=== PATIENT | female | born 1980 | race Caucasian/White ===

== ENCOUNTER 2022-05-29 20:12 | Emergency (ER) | payer BC ==
[2022-05-29] MEDS ORDERED: Albuterol/Ipratropium 3.0-0.5 MG/3 ML Neb Soln NEB ONE (20:39)
[2022-05-29] MEDS ORDERED: Iopamidol 755 Mg/ML 100 ML Bottle IVPUSH ONE (22:12)
[2022-05-29] MEDS ORDERED: Sodium Chloride 0.9% 100 ML IV SCH (22:15)
== END 2022-05-29 23:15 | disposition home or self-care (01) ==
LOC: JD.ED 20:12
DX: U07.1 COVID-19 (principal); J12.82 Pneumonia due to coronavirus disease 2019; Z91.048 Other nonmedicinal substance allergy status; Z88.1 Allergy status to other antibiotic agents; Z88.8 Allergy status to other drugs, medicaments and biological substances; Z79.01 Long term (current) use of anticoagulants; Z86.16 Personal history of COVID-19
CPT/HCPCS: 36415; 71045; 71045-26; 71275; 71275-26; 80053; 85025; 85379; 86140; 94640; 99285; J7620-GY; Q9967

== ENCOUNTER 2022-12-01 17:03 | Emergency (ER) | payer BC ==
[2022-12-01] MEDS ORDERED: Sodium Chloride 0.9% 10 ML Syringe FLUSH PRN ×2 (18:11→18:19)
[2022-12-01] MEDS ORDERED: Sodium Chloride 0.9% 1,000 ML IV ONE (18:11)
[2022-12-01] MEDS ORDERED: Ondansetron 4 MG/2 ML SDV IVPUSH ONE (18:11)
[2022-12-01 18:18] LABS: BASOPHILS ABSOLUTE AUTO 0.02 K/mm3 (0.01-0.08); BASOPHILS PERCENT AUTO 0.5 % (0.1-1.2); EOSINOPHILS PERCENT AUTO 2.3 (0.7-5.8); HEMOGLOBIN 13.2 gm/dl (11.2-15.7); IMMATURE GRAN ABSOLUTE AUTO 0.01 K/mm3 (0.00-0.10); IMMATURE GRAN PERCENT AUTO 0.2 % (<=1.0); LYMPHOCYTES ABSOLUTE AUTO 0.92 K/mm3 (1.18-3.74); LYMPHOCYTES PERCENT AUTO 20.9 % (19.3-51.7); MEAN CORPUSCULAR HEMOGLOBIN 31.6 pg (25.6-32.2); MEAN CORPUSCULAR HGB CONC 32.2 g/dl (32.2-35.5); MEAN CORPUSCULAR VOLUME 98.1 fl (79.4-94.8); MONOCYTES ABSOLUTE AUTO 0.61 K/mm3 (0.24-0.36); MONOCYTES PERCENT AUTO 13.8 % (4.7-12.5); NEUTROPHILS ABSOLUTE AUTO 2.75 K/mm3 (1.56-6.13); NEUTROPHILS PERCENT AUTO 62.3 % (34.0-71.1); PLATELET COUNT,PLT 248 K/mm3 (182-369); RED BLOOD CELL COUNT 4.18 M/mm3 (3.98-5.22); WHITE BLOOD CELL COUNT,WBC 4.41 K/mm3 (3.98-10.04)
[2022-12-01] MEDS ORDERED: Iopamidol 612 MG/ML 100 ML Bottle IVPUSH ONE (18:19)
[2022-12-01 18:28] LABS: A/G RATIO 0.8 (1-2); ALBUMIN 3.6 g/dl (3.4-5.0); ANION GAP 12.3 (5-15); BILIRUBIN TOTAL 0.2 mg/dL (0.2-1.0); C-REACTIVE PROTEIN 0.8 mg/dL (<1.0); CALCIUM 9.3 mg/dL (8.5-10.1); EST CRCL DRUG DOSING (CG) 72.72 mL/min; MAGNESIUM 1.8 mg/dL (1.8-2.4); POTASSIUM,K 4.3 mEq/L (3.5-5.1); PROTEIN TOTAL,TP 8.4 g/dl (6.4-8.2)
[2022-12-01 18:53] LABS: APPEARANCE,URINE SLT CLOUDY (Clear); BILIRUBIN,URINE 1+ (Negative); COLOR,URINE AMBER (Yellow); GLUCOSE,URINE TRACE (Negative); KETONES,URINE 1+ (Negative); LEUKOCYTE ESTERASE,URINE TRACE (Negative); NITRITE,URINE POSITIVE (Negative); OCCULT BLOOD,URINE 2+ (Negative); PH,URINE 5.5 (5.0-8.0); PROTEIN,URINE 3+ (Negative)
[2022-12-01 19:04] LABS: RBC,URINE 50-75 /hpf (0-5); WBC,URINE >100 /hpf (0-5)
[2022-12-01 19:05] LABS: BACTERIA,URINE MANY /hpf (FEW); EPITHELIAL CELLS,URINE 30-40 /hpf (0-5); MUCUS,URINE MODERATE /hpf (FEW)
[2022-12-01] MEDS ORDERED: Piperacillin/Tazobactam 4.5 GM in Sodium Chloride 0.9% 100 ML IV ONE (20:23)
[2022-12-01] MEDS ORDERED: cefTRIAXone 2 GM in Sodium Chloride 0.9% 100 ML IV ONE (20:29)
== END 2022-12-01 22:20 | disposition home or self-care (01) ==
LOC: JD.ED 17:03
DX: N30.01 Acute cystitis with hematuria (principal); Z86.16 Personal history of COVID-19; Z79.02 Long term (current) use of antithrombotics/antiplatelets; Z79.899 Other long term (current) drug therapy; Z88.1 Allergy status to other antibiotic agents; Z88.8 Allergy status to other drugs, medicaments and biological substances; Z91.048 Other nonmedicinal substance allergy status
CPT/HCPCS: 36415; 74177; 76830; 80053; 81001; 83690; 83735; 85025; 86140; 87086; 96365; 96375; 99284; J0696; J2405; J3490; J7030; Q9967

== ENCOUNTER 2023-08-05 17:59 | Emergency (ER) | payer BC | END 2023-08-05 20:06 | disposition home or self-care (01) | LOC: JD.ED 17:59 | DX: M25.512 Pain in left shoulder (principal); Z86.16 Personal history of COVID-19; Z79.01 Long term (current) use of anticoagulants; Z79.899 Other long term (current) drug therapy; Z91.048 Other nonmedicinal substance allergy status; Z88.1 Allergy status to other antibiotic agents; Z88.8 Allergy status to other drugs, medicaments and biological substances | CPT/HCPCS: 73030-26-LT; 73030-LT; 99283 ==

== ENCOUNTER 2023-09-24 19:31 | Emergency (ER) | payer BC ==
[2023-09-24 19:55] LABS: BASOPHILS PERCENT AUTO 0.9 % (0.0-1.0); EOSINOPHILS ABSOLUTE AUTO 0.1 K/mm3 (0.0-0.4); EOSINOPHILS PERCENT AUTO 1.4 % (0.0-6.0); HEMATOCRIT 38.3 % (37.0-47.0); HEMOGLOBIN 12.7 gm/dl (12.0-16.0); IMMATURE GRAN ABSOLUTE AUTO 0.01 K/mm3 (0.00-0.05); IMMATURE GRAN PERCENT AUTO 0.3 % (0.0-0.4); LYMPHOCYTES ABSOLUTE AUTO 0.7 K/mm3 (1.0-4.8); LYMPHOCYTES PERCENT AUTO 20.2 % (24.0-44.0); MEAN CORPUSCULAR HEMOGLOBIN 32.6 pg (28.0-32.0); MEAN CORPUSCULAR HGB CONC 33.2 g/dl (32.0-36.0); MEAN CORPUSCULAR VOLUME 98.5 fl (83.0-99.0); MEAN PLATELET VOLUME 9.4 fl (9.4-12.3); MONOCYTES ABSOLUTE AUTO 0.3 K/mm3 (0.0-0.8); MONOCYTES PERCENT AUTO 8.3 % (0.0-8.0); NEUTROPHILS ABSOLUTE AUTO 2.4 K/mm3 (1.8-7.7); NEUTROPHILS PERCENT AUTO 68.9 % (41.0-71.0); PLATELET COUNT,PLT 208 K/mm3 (150-400); RED BLOOD CELL COUNT 3.89 M/mm3 (4.10-5.30); WHITE BLOOD CELL COUNT,WBC 3.51 K/mm3 (3.9-11.3)
[2023-09-24] MEDS: Labetalol 100 MG/20 ML MDV IVPUSH ONE (20:14)
[2023-09-24 20:17] LABS: APPEARANCE,URINE CLEAR (Clear); BILIRUBIN,URINE NEGATIVE (Negative); COLOR,URINE YELLOW (Yellow); GLUCOSE,URINE NEGATIVE (Negative); KETONES,URINE NEGATIVE (Negative); LEUKOCYTE ESTERASE,URINE NEGATIVE (Negative); NITRITE,URINE NEGATIVE (Negative); OCCULT BLOOD,URINE NEGATIVE (Negative); PH,URINE 6.5 (5.0-8.0); PROTEIN,URINE NEGATIVE (Negative); UROBILINOGEN,URINE 0.2 (0.2-1.0)
[2023-09-24 20:19] LABS: A/G RATIO 0.9 (1-2); ALBUMIN 3.6 g/dl (3.4-5.0); ANION GAP 13.7 (5-15); BILIRUBIN TOTAL 0.2 mg/dL (0.2-1.0); CALCIUM 8.6 mg/dL (8.5-10.1); POTASSIUM,K 3.7 mEq/L (3.5-5.1); PROTEIN TOTAL,TP 7.8 g/dl (6.4-8.2)
[2023-09-24] MEDS: Sodium Chloride 0.9% 10 ML Syringe FLUSH PRN (20:25)
[2023-09-24] MEDS: Digoxin 500 MCG/2 ML Amp IVPUSH ONE (20:25)
== END 2023-09-24 21:55 | disposition home or self-care (01) ==
LOC: JD.ED 19:31
DX: I47.9 Paroxysmal tachycardia, unspecified (principal); Z86.16 Personal history of COVID-19; Z79.899 Other long term (current) drug therapy; Z91.048 Other nonmedicinal substance allergy status; Z88.8 Allergy status to other drugs, medicaments and biological substances; Z88.1 Allergy status to other antibiotic agents
CPT/HCPCS: 36415; 80053; 81003; 83735; 84484; 85025; 85379; 93005; 96374; 99285; J1160; J1921; J3490; 93010; 99284

== ENCOUNTER 2025-04-18 18:47 | Emergency (ER) | payer BC, OTHER ==
[2025-04-18] MEDS ORDERED: Sodium Chloride 0.9% 10 ML Syringe FLUSH PRN (19:21)
[2025-04-18 19:26] LABS: BASOPHILS ABSOLUTE AUTO 0.0 K/mm3 (0.0-0.2); BASOPHILS PERCENT AUTO 0.6 % (0.0-1.0); EOSINOPHILS ABSOLUTE AUTO 0.1 K/mm3 (0.0-0.4); EOSINOPHILS PERCENT AUTO 1.8 % (0.0-6.0); IMMATURE GRAN ABSOLUTE AUTO 0.01 K/mm3 (0.00-0.05); IMMATURE GRAN PERCENT AUTO 0.2 % (0.0-0.4); LYMPHOCYTES ABSOLUTE AUTO 1.1 K/mm3 (1.0-4.8); LYMPHOCYTES PERCENT AUTO 20.8 % (24.0-44.0); MEAN PLATELET VOLUME 9.6 fl (9.4-12.3); MONOCYTES ABSOLUTE AUTO 0.6 K/mm3 (0.0-0.8); MONOCYTES PERCENT AUTO 11.9 % (0.0-8.0); NEUTROPHILS ABSOLUTE AUTO 3.3 K/mm3 (1.8-7.7); NEUTROPHILS PERCENT AUTO 64.7 % (41.0-71.0); NRBC ABSOLUTE 0.00 (0.00-0.02); NRBC PERCENT 0.0 % (0.0-0.2); PLATELET COUNT,PLT 206 K/mm3 (150-400); RED BLOOD CELL COUNT 3.87 M/mm3 (4.10-5.30); WHITE BLOOD CELL COUNT,WBC 5.14 K/mm3 (3.9-11.3)
[2025-04-18] MEDS: Iopamidol 755 Mg/ML 100 ML Bottle IVPUSH ONE (19:43)
[2025-04-18 20:14] LABS: A/G RATIO 0.9 (1-2); ALANINE AMINOTRANSFERASE,ALT 24.0 U/L (14-59); ASPARTATE AMNIOTRANSFERASE,AST 13.0 U/L (15-37); BILIRUBIN TOTAL 0.2 mg/dL (0.2-1.0); BLOOD UREA NITROGEN,BUN 13.0 mg/dL (7-18); CARBON DIOXIDE,CO2 26.0 mEq/L (21-32); CHLORIDE,CL 107.0 mEq/L (98-107); CREATININE 1.0 mg/dL (0.55-1.02); EST CRCL DRUG DOSING (CG) 71.27 mL/min; ESTIMATED GFR 72.0 mL/min (>60); GLUCOSE RANDOM 121.0 mg/dL (70-99); PROTEIN TOTAL,TP 7.3 g/dl (6.4-8.2); SODIUM,NA 142.0 mEq/L (136-145); TROPONIN I HIGH SENSITIVITY 5.0 pg/mL (<=51); TSH 4.266 uIU/mL (0.358-3.74)
[2025-04-18 20:15] LABS: POTASSIUM,K 4.3 mEq/L (3.5-5.1)
[2025-04-18 21:48] LABS: T4 FREE 1.25 ng/dL (0.76-1.46)
== END 2025-04-18 21:34 | disposition home or self-care (01) ==
LOC: JD.ED 18:47
DX: R00.2 Palpitations (principal); R06.02 Shortness of breath; Z79.01 Long term (current) use of anticoagulants; Z79.890 Hormone replacement therapy; Z86.16 Personal history of COVID-19; Z91.048 Other nonmedicinal substance allergy status; Z88.8 Allergy status to other drugs, medicaments and biological substances; Z88.1 Allergy status to other antibiotic agents
CPT/HCPCS: 36415; 71275; 80053; 83735; 83880; 84439; 84443; 84484; 85025; 93005; 99285; Q9967